=== PATIENT | male | born 1985 | race Caucasian/White ===

== ENCOUNTER 2017-07-22 01:27 | Emergency (ER) | payer OTHER, SELFPAY ==
[2017-07-22 01:29] VITALS: BP 146/95; PULSE 75; RESP 18; TEMP 36.6; O2SAT 95; BMI 30.4
--- NOTE | 2017-07-22 02:27 | ED.VISSUMM ---
- ER Visit Summary Date of Service: 07/22/17 Chief Complaint: 2 day history of right earache. History of Present Illness: The patient is a 32 M glaucoma. States he has had atraumatic right earache for the last 2 days. Denies any fever. Denies any trouble swallowing or sore throat. Physical Examination: 32-year-old male no acute distress. Vital signs stable afebrile. HEENT exam are very poor dentition multiple cavities decaying teeth. Posterior pharynx unremarkable. Left TM normal. Right TM is dull and red consistent with otitis media. Canals unremarkable. Neck nontender no lymphadenopathy. Trachea midline. Lungs clear to auscultation bilaterally. Heart regular rate and rhythm no murmur. Abdomen is soft and nontender. Moving all 4 extremities. Skin no rashes. Neurologic exam unremarkable. Test Results: None Emergency Department Course and Treatment: Acute right otitis media treated with amoxicillin first dose given here. Treatment Plan: Amoxacillin 3 times daily for 10 days 30 no refill. Tylenol Motrin for pain. Follow-up primary care physician if not improving. Disposition: Discharge Impression: Acute right otitis media This note was generated with [email or web address] dictation software. It may contain incorrect words, spelling, and punctuation that were not noted in review of the chart prior to signing ED Disposition - Plan for ED Patient: Chief Complaint: Ear Problem Referrals: Care Physician,No Primary [Primary Care Provider] -
--- NOTE | 2017-07-22 02:30 | ED.DEP ---
ED Disposition - Plan for ED Patient: Disposition: Home or Assisted Living Chief Complaint: Ear Problem Instructions: ED Otitis Media Acute Adult Prescriptions: Amoxicillin 500 mg PO TID #30 tab Referrals: Daniel Le MD [STAFF PHYSICIAN] - 3-5 Days if not improving Additional Instructions: Tylenol and Motrin for pain. Amoxicillin 3 times a day till gone. Follow-up with primary care physician if not getting better.
[2017-07-22] MEDS: AMOXICILLIN 500 MG CAPSULE PO (02:37)
== END 2017-07-22 02:38 | disposition home or self-care (01) ==
PROVIDERS: Emergency Provider Emergency Medicine
DX: H66.91 Otitis media, unspecified, right ear (principal); H40.9 Unspecified glaucoma; K02.9 Dental caries, unspecified
CPT/HCPCS: 99283

== ENCOUNTER → 2020-09-16 14:54 | Outpatient (CLI) | payer OTHER, SELFPAY ==
[2020-09-16 17:53] LABS: Anion Gap 6 (5-15); BUN 11 mg/dL (7-18); BUN/Creat Ratio 10.5 RATIO (10-20); Calcium,Total 8.6 mg/dL (8.5-10.1); Chloride 104 mmol/L (98-107); Cholesterol 145 mg/dL (200); Creatinine, Serum 1.05 mg/dL (0.70-1.30); EST Glomerular Filtration Rate 86 mL/min (>60); Est Glom Filt Rate - Afr Amer 104 mL/min (>60); Glucose 78 mg/dL (74-106); High Density Lipoprotein 39 mg/dL; Potassium 3.6 mmol/L (3.5-5.1); Sodium Level 139 mmol/L (136-145); Thyroid Stim Hormone (TSH) 1.09 uIU/mL (0.358-3.74); Triglycerides 147 mg/dL; Very Low Density Lipoprotein 29 mg/dL (5-40)
== END ==
LOC: MFPLAB 14:56
PROVIDERS: PCP Family Medicine; Referring Provider Family Medicine; Visit Provider Family Medicine
DX: Z00.00 Encounter for general adult medical examination without abnormal findings (principal); F32.9 Major depressive disorder, single episode, unspecified
CPT/HCPCS: 36415; 80048; 80061; 84443